=== PATIENT | female | born 1970 | race Caucasian/White ===

== ENCOUNTER → 2020-08-09 | Outpatient (CLI) | payer OTHER ==
--- NOTE | 2020-08-09 12:38 | RAD ---
EXAM: Lumbar spine, 5 views; pelvis and bilateral hips, 5 views. HISTORY: Pain. COMPARISON: None. FINDINGS: Lumbar spine: 5 views of the lumbar spine are obtained. There are 6 nonrib-bearing vertebral segments or hypoplastic T12 ribs. The last segment on this exam will be considered a partially sacralized L5 segment with rudimentary L5-S1 disc. The sacralized L5 transverse process articulates the underlying sacrum, a normal variant. There is no fracture. There is no significant listhesis. There is mild facet arthropathy at the lower lumbar levels. There is a calcification overlying the left upper quadrant which may be vascular or due to a gallstone. Bilateral hips: A frontal view the pelvis and frontal and frog-leg views of both hips are obtained. There is no fracture, dislocation or subluxation. The femoral heads are normal in configuration. The sacroiliac joints are intact. IMPRESSION: 1. No acute osseous finding. 2. 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 3. Transitional lumbosacral segment, considered a partially sacralized L5 segment for this dictation. This is a normal variant. Electronically signed by: Cecille Alberts MD (08/09/2020 12:35 PM) [id number]
== END ==
LOC: DXRAD 11:50
PROVIDERS: ATTEND Orthopaedic Surgery
DX: M47.816 Spondylosis without myelopathy or radiculopathy, lumbar region (principal); Q76.49 Other congenital malformations of spine, not associated with scoliosis; M25.552 Pain in left hip; M25.551 Pain in right hip
CPT/HCPCS: 72110; 73521